=== PATIENT | male | born 1965 | race Caucasian/White ===

== ENCOUNTER 2020-07-19 10:35 | Outpatient (CLI) | payer OTHER, SELFPAY ==
--- NOTE | 2020-07-19 10:40 | CT_ITS ---
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 CT angiogram is performed of the cerebral arteries. During arterial injection imaging is obtained from the skull vertex to the skull base in 1. 25 mm imaging. Coronal and sagittal reformats are submitted. Additional multi planar reformats of the cerebral arteries are submitted, MIP imaging also reviewed. All CT scans at [facility] use at least one of these dose optimization techniques: automated exposure control; mA and/or kV adju stment per patient size (includes targeted exams where dose is matched to clinical indication); or it erative reconstruction. CONTRAST: Omnipaque 350; 95 mL IV. DLP: 1696.94 mGy.cm COMPARISON: None available. Noncontrast CT head is first performed. No acute intracranial hemorrhage. No significant atrophy. Carol y small lacunar infarct in the RIGHT caudate body. Cavum septum pellucidum et Verga malformation. Intracranial vertebral arteries: LEFT vertebral artery is dominant. There is mild atherosclerotic omer que but no significant or high-grade stenosis. Basilar artery: No significant stenosis or occlusion. No aneurysm. Intracranial Internal carotid arteries: Mild atherosclerotic plaque through the petrous and cavernous portions of the intracranial carotid arteries. No high-grade stenosis. No aneurysms. Middle cerebral arteries: Normal. Anterior cerebral arteries and ACOM: Normal. Posterior cerebral arteries and PCOM's: Small caliber but patent posterior communicating arteries. Po sterior cerebral arteries are normal caliber. Dural venous sinuses are normally enhancing. Mastoid air cells: Normal. Paranasal sinuses: Small mucous retention cyst in the LEFT maxillary sinus. Calvarium: Normal. CT/CT angio head 26777 IMPRESSION: 1. No high-grade stenoses or occlusions within the [place]. 2. No cerebral aneurysm identified. 3. Mild atherosclerosis in the petrous and cavernous portions of the internal carotid arteries.
[2020-07-19] MEDS: iohexol 350 mg/mL 100 mL Btl IV (11:00)
--- NOTE | 2020-07-19 12:00 | USCV_ITS ---
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 BP: 124 / 86 HR: 79 Rhythm: Sinus Technical Quality: Adequate MEASUREMENTS (Male / Female) Normal Values 2D ECHO LV Chamber Size 4.3 cm RV Chamber Size 3.4 cm LVOT Diameter 2.2 cm LV Ejection Fraction MOD 2C 79.3 % LV Ejection Fraction 2C AL 79.6 % LA Diameter 5.1 cm LA Width 2.4 cm LA Height 4.1 cm RA Width 2.6 cm RA Height 4.3 cm Aorta at Sinotubular Diameter 3.7 cm M-MODE LV Diastolic Diameter MM 5.2 cm 4.2 - 5.9 / 3.9 - 5.3 cm LV Systolic Diameter MM 3.1 cm LV Ejection Fraction MM Teich 71.3 % IVS Diastolic Thickness MM 1.3 cm 0.6 - 1.0 / 0.6 - 0.9 cm IVS Systolic Thickness MM 1.7 cm LVPW Diastolic Thickness MM 1.5 cm 0.6 - 1.0 / 0.6 - 0.9 cm LVPW Systolic Thickness MM 2.2 cm Aortic Annulus Diameter 4.4 cm LA Ao Ratio MM 1.6 MV E Point Septal Separation 0.6 cm DOPPLER AV Peak Velocity 95.0 cm/s LVOT Peak Velocity 92.0 cm/s AV Area Cont Eq vti 3.9 cm squared AV Area Cont Eq pk 3.6 cm squared MV Area PHT 3.7 cm squared Mitral E to A Ratio 1.0 MV E' Velocity 37.5 cm/s Mitral E to MV E' Ratio 6.6 Mitral E to LV E' Lateral Ratio 4.9 Mitral E to LV E' Septal Ratio 10.1 TR Peak Velocity 80.4 cm/s TR Peak Gradient 2.6 mmHg TR Mean Velocity 97.9 cm/s TR Mean Gradient 4.1 mmHg TR Velocity Time Integral 30.1 cm TV Peak E Velocity 87.0 cm/s PV Peak Velocity 71.0 cm/s RV Acceleration Time 0.2 s RV Ejection Time 0.3 s RV AcT/ET 0.7 FINDINGS Left Ventricle Normal left ventricular cavity size. Normal left ventricular systolic function. No regional wall motion abnormalities. Left ventricular ejection fraction is estimated at 60 %. Grade I/IV diastolic dysfunction (abnormal relaxation filling pattern), normal to mildly elevated filling pressures. Right Ventricle The right ventricle is normal in size and function. RVSP could not be calculated due to incomplete tricuspid regurgitation velocity profile. Right Atrium The right atrium is normal in size. Left Atrium The left atrium is normal in size. Mitral Valve Moderately thickened mitral valve. No mitral valve stenosis. Trace mitral valve regurgitation. Aortic Valve Aortic valve sclerosis without stenosis or regurgitation. Tricuspid Valve Structurally normal tricuspid valve without significant stenosis or regurgitation. Pulmonic Valve Structurally normal pulmonic valve without significant stenosis. There is no pulmonic regurgitation. Pericardium Normal pericardium without effusion. Aorta Normal ascending aorta dimension. CONCLUSIONS 1-Normal left ventricular cavity size. Normal left ventricular systolic function. No regional wall motion abnormalities. Left ventricular ejection fraction is estimated at 60 %. Grade I/IV diastolic dysfunction (abnormal relaxation filling pattern), normal to mildly elevated filling pressures. 2-There is no pericardial effusion. 3-No significant valve abnormalities. 4-The right ventricle is normal in size and function. RVSP could not be calculated due to incomplete tricuspid regurgitation velocity profile. 5-There are no prior echocardiogram studies to compare. Avelina Dent MD (Electronically Signed) Final Date: 28 Jul 2020 18:57 S
--- NOTE | 2020-07-19 13:30 | USCV_ITS ---
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 No significant elevation of systolic or diastolic velocities. Waveforms are normal. No significant amount of calcified plaque or intimal thickening identified. CONCLUSIONS No evidence of significant carotid artery stenosis. Dr. Carlotta Michael DO (Electronically Signed) Final Date: 19 July 2020 14:39 S
== END 2020-07-19 10:36 | disposition home or self-care (01) ==
LOC: CT 10:35
PROVIDERS: Visit Provider Internal Medicine Cardiovascular Disease
DX: H34.219 Partial retinal artery occlusion, unspecified eye (principal); I65.23 Occlusion and stenosis of bilateral carotid arteries
CPT/HCPCS: 70496; 93306; 93880